=== PATIENT | female | born 1975 | race Caucasian/White ===

== ENCOUNTER 2019-10-15 09:07 | Emergency (ER) | payer MEDICAID ==
[2019-10-15] MEDS ORDERED: LIDOCAINE 2% VISCOUS SOLN 15 ML UDCUP PO ONE (09:26)
[2019-10-15] MEDS ORDERED: MAG HYDROX/AL HYDROX/SIMETH SUSP 30 ML UDCUP PO ONE (09:26)
[2019-10-15] MEDS ORDERED: METOCLOPRAMIDE HCL ORAL SOLN 10 MG/10 ML UDCUP PO ONE (09:26)
--- NOTE | 2019-10-15 09:29 | ER Document Report ---
ED Medical Screen (RME) - General Chief Complaint: Abdominal Pain Stated Complaint: ABDOMINAL PAIN Time Seen by Provider: 10/15/19 09:20 Primary Care Provider: GUERITA SHUKLA DO [Primary Care Provider] - Follow up as needed Mode of Arrival: Ambulatory Information source: Patient Notes: 44-year-old female presented to ED for difficulty swallowing pain when she swallows pain when she eats when she lays down she has severe pain. Patient states she has a history with IBS but states she has never had pain like this. She states that it feels like the food goes to the bottom of her esophagus and then just sits there. She states sometimes she can feel the cold liquid just sitting in the bottom of her esophagus. Patient is alert oriented respirations regular and unlabored speaking in full sentences. I have greeted and performed a rapid initial assessment of this patient. A comprehensive ED assessment and evaluation of the patient, analysis of test results and completion of medical decision making process will be conducted by an additional ED providers. TRAVEL OUTSIDE OF THE [place] IN LAST 30 DAYS: No - Related Data Allergies/Adverse Reactions: Sulfa (Sulfonamide Antibiotics) Allergy (Verified 11/18/13 14:25) Past Medical History - Past Medical History Cardiac Medical History: Denies: Hx Coronary Artery Disease, Hx Heart Attack, Hx Hypertension Pulmonary Medical History: Denies: Hx Asthma, Hx Bronchitis, Hx COPD, Hx Pneumonia Neurological Medical History: Reports: Hx Migraine. Denies: Hx Cerebrovascular Accident, Hx Seizures GI Medical History: Reports: Hx Irritable Bowel Musculoskeltal Medical History: Denies Hx Arthritis Psychiatric Medical History: Reports: Hx Depression Past Surgical History: Reports: Hx Oral Surgery, Hx Tonsillectomy, Hx Tubal Ligation. Denies: Hx Hysterectomy, Hx Pacemaker - Immunizations Hx Diphtheria, Pertussis, Tetanus Vaccination: No Physical Exam - Vital signs Vitals: Temp Pulse Resp BP Pulse Ox 97.9 F 96 16 142/83 H 99 10/15/19 09:14 10/15/19 09:14 10/15/19 09:14 10/15/19 09:14 10/15/19 09:14 Course - Vital Signs Vital signs: Temp Pulse Resp BP Pulse Ox 97.9 F 96 16 142/83 H 99 10/15/19 09:14 10/15/19 09:14 10/15/19 09:14 10/15/19 09:14 10/15/19 09:14 Doctor's Discharge - Discharge Referrals: GUERITA SHUKLA, [Primary Care Provider] - Follow up as needed
[2019-10-15 10:02] LABS: ABSOLUTE BASOPHILS # (AUTO) 0.1 10^3/uL (0.0-0.2); ABSOLUTE EOSINOPHILS # (AUTO) 1.5 10^3/uL (0.0-0.6); ABSOLUTE LYMPHOCYTES (AUTO) 3.1 10^3/uL (0.5-4.7); ABSOLUTE MONOCYTES (AUTO) 0.6 10^3/uL (0.1-1.4); ABSOLUTE NEUT (AUTO) 5.2 10^3/uL (1.7-8.2); BASOPHILS % (AUTO) 1.3 % (0-2); HEMATOCRIT 39.1 % (36.0-47.0); HEMOGLOBIN 12.5 g/dL (12.0-15.5); LYMPHOCYTES % (AUTO) 29.4 % (13-45); MEAN CORPUSCULAR HEMOGLOBIN 24.4 pg (27.0-33.4); MEAN CORPUSCULAR HGB CONC 32.1 g/dL (32.0-36.0); MEAN CORPUSCULAR VOLUME 76 fl (80-97); MONOCYTES % (AUTO) 5.5 % (3-13); PLATELET COUNT 446 10^3/uL (150-450); RED BLOOD COUNT 5.15 10^6/uL (3.72-5.28); RED CELL DISTRIBUTION WIDTH 20.3 % (11.5-14.0); SEGMENTED NEUTROPHILS % (AUTO) 49.8 % (42-78); TOTAL CELLS COUNTED % (AUTO) 100 %; WHITE BLOOD COUNT 10.4 10^3/uL (4.0-10.5)
[2019-10-15 10:06] LABS: APPEARANCE,URINE CLEAR; BILIRUBIN,URINE NEGATIVE (NEGATIVE); COLOR,URINE STRAW; GLUCOSE, URINE NEGATIVE (NEGATIVE); KETONES,URINE NEGATIVE (NEGATIVE); LEUKOCYTE ESTERASE,URINE NEGATIVE (NEGATIVE); NITRITE,URINE NEGATIVE (NEGATIVE); PROTEIN,URINE NEGATIVE (NEGATIVE); URINE SPECIFIC GRAVITY 1.004; UROBILINOGEN,URINE NEGATIVE mg/dL (<2.0)
[2019-10-15 10:41] LABS: ALBUMIN 5.3 g/dL (3.5-5.0); ALKALINE PHOSPHATASE 63 U/L (38-126); ANION GAP 13 (5-19); ASPARTATE AMINO TRANSFERASE 22 U/L (14-36); BILIRUBIN,TOTAL 0.4 mg/dL (0.2-1.3); BLOOD UREA NITROGEN 4 mg/dL (7-20); CALCIUM 10.1 mg/dL (8.4-10.2); CARBON DIOXIDE 25 mmol/L (22-30); CHLORIDE 101 mmol/L (98-107); GLUCOSE 77 mg/dL (75-110); POTASSIUM 3.8 mmol/L (3.6-5.0); TOTAL PROTEIN 8.8 g/dL (6.3-8.2)
--- NOTE | 2019-10-15 11:57 | RADIOLOGY REPORT (SQ) ---
EXAM DESCRIPTION: ACUTE ABDOMEN SERIES IMAGES COMPLETED DATE/TIME: 10/15/2019 10:12 am REASON FOR STUDY: nausea/vomiting COMPARISON: None. NUMBER OF VIEWS: Three views. TECHNIQUE: Frontal chest, supine abdomen and upright/decubitus abdomen radiographic images acquired. LIMITATIONS: None. FINDINGS: CHEST: Lungs clear of infiltrates. FREE AIR: None. No abnormal gas collections. BOWEL GAS PATTERN: Nonobstructive pattern. No dilated loops or air fluid levels. Moderate stool in t he colon. CALCIFICATIONS: No suspicious calcifications. HARDWARE: None in the abdomen. SOFT TISSUES: No gross mass or suggestion of organomegaly. BONES: No acute fracture. No worrisome bone lesions. OTHER: No other significant finding. IMPRESSION: No acute cardiopulmonary disease. Moderate stool in the colon which can be seen with co nstipation. Nonobstructive bowel gas pattern. TECHNICAL DOCUMENTATION: JOB ID: [id number] 2010 [employer]- All Rights Reserved Reading location - IP/workstation name: [email or web address]
--- NOTE | 2019-10-15 12:56 | ER Document Report ---
Entered by HOMER STARR SCRIBE 10/15/19 1018 Acting as scribe for:DORITA UMAÑA MD ED General - General Chief Complaint: Epigastric Pain Stated Complaint: ABDOMINAL PAIN Time Seen by Provider: 10/15/19 09:20 Primary Care Provider: GUERITA SHUKLA DO [NO LOCAL MD] - Follow up as needed Mode of Arrival: Ambulatory Information source: Patient Notes: This 44-year-old female patient presents to the emergency department today with complaints of "tummy issues" for the last several months. Patient states she has had IBS for 20 years and this is "nothing like that". Patient further describes her symptoms, stating that when she is eating it gets stuck and she indicates the area that it feels like it is getting stuck is at the top of her stomach. Patient states other times it feels like her "whole tummy is on fire". Patient states she has not been seen yet for these symptoms. Patient denies a history of a hiatal hernia. TRAVEL OUTSIDE OF THE [place] IN LAST 30 DAYS: No - Related Data Allergies/Adverse Reactions: Sulfa (Sulfonamide Antibiotics) Allergy (Verified 11/18/13 14:25) Home Medications: Nexium, vitamins Past Medical History - General Information source: Patient - Social History Smoking Status: Never Smoker Cigarette use (# per day): No Frequency of alcohol use: None Drug Abuse: None Family History: Reviewed & Not Pertinent Patient has homicidal ideation: No Neurological Medical History: Reports: Hx Migraine GI Medical History: Reports: Hx Irritable Bowel Psychiatric Medical History: Reports: Hx Depression Past Surgical History: Reports: Hx Oral Surgery, Hx Tonsillectomy, Hx Tubal Ligation - Immunizations Hx Diphtheria, Pertussis, Tetanus Vaccination: No Review of Systems - Review of Systems Constitutional: No symptoms reported EENT: No symptoms reported Cardiovascular: No symptoms reported Respiratory: No symptoms reported Gastrointestinal: See HPI, Abdominal pain, Nausea, Vomiting Genitourinary: No symptoms reported Female Genitourinary: No symptoms reported Musculoskeletal: No symptoms reported Skin: No symptoms reported Hematologic/Lymphatic: No symptoms reported Neurological/Psychological: No symptoms reported -: Yes All other systems reviewed and negative Physical Exam - Vital signs Vitals: Temp 97.9 F 10/15/19 09:08 - Notes Notes: Physical Exam: General: Alert, very thin appearing. HEENT: Normocephalic. Atraumatic. PERRL. Extraocular movements intact. Oropharynx clear. Neck: Supple. Non-tender. Respiratory: No respiratory distress. Clear and equal breath sounds bilaterally. Cardiovascular: Regular rate and rhythm. Abdominal: Normal Inspection. Non-tender. No distension. Normal Bowel Sounds. Back: No gross abnormalities. Extremities: Moves all four extremities. Upper extremities: Normal inspection. Normal ROM. Lower extremities: Normal inspection. No edema. Normal ROM. Neurological: Normal cognition. AAOx4. Normal speech. Psychological: Normal affect. Normal Mood. Skin: Warm. Dry. Normal color. Course - Re-evaluation Re-evalutation: 10/15/19 12:50 Patient resting comfortably no signs of distress. - Vital Signs Vital signs: Temp Pulse Resp BP Pulse Ox 97.9 F 96 16 142/83 H 99 10/15/19 09:14 10/15/19 09:14 10/15/19 09:14 10/15/19 09:14 10/15/19 09:14 - Laboratory Result Diagrams: 10/15/19 09:33 10/15/19 09:33 Laboratory results interpreted by me: 10/15/19 10/15/19 09:33 09:33 MCV 76 L MCH 24.4 L RDW 20.3 H Eos % (Auto) 14.0 H Absolute Eos (auto) 1.5 H BUN 4 L Total Protein 8.8 H Albumin 5.3 H 10/15/19 12:50 Labs within normal limits except there is a elevated troponin of 8.8 and albumin of 5.3. - Diagnostic Test Radiology reviewed: Image reviewed, Reports reviewed Radiology results interpreted by me: 10/15/19 12:51 Acute abdominal series shows no acute process. Moderate stool consistent with constipation. Discharge - Discharge Clinical Impression: Gastroesophageal reflux disease, Constipation Condition: Stable Disposition: HOME, SELF-CARE Instructions: Abdominal Pain ([facility]) Additional Instructions: Reflux Disease (GERD) Gastro-Esophageal Reflux Disease (GERD) is caused by stomach acid refluxing back up into the esophagus. The valve at the end of the esophagus may be weak. This is common in persons with a hiatal hernia. GERD symptoms can include indigestion, chest pain, heartburn, or food "sticking." Certain foods, alcohol, and aspirin can make GERD worse. Treatment depends on the severity. Usually, antacids or acid-suppressing medicines are used. When the esophagus is acutely inflamed, the physician will often prescribe membrane-protective drugs such as Carafate. Some patients benefit from medication such as Reglan that tightens the valve at the top of the stomach. Avoid those foods that bring on your symptoms. For many people, these foods are coffee, chocolate, onions, garlic, and carbonated drinks. Don't use alcohol, aspirin, caffeine, or tobacco. Don't eat late at night -- within 4 hours of bedtime. Don't over-eat. If necessary, elevate the head of your bed about 4 inches so that stomach acid will not roll up into your esophagus. Call the doctor if you develop severe chest pain, inability to swallow fluids, fever, or worsening symptoms. Constipation Constipation is a common problem. It is especially likely as you get older. Constipation is a common cause of abdominal pain, but sometimes causes no symptoms at all. Causes of constipation include certain medications, dehydration, diets, inactivity, and low-fiber intake. Rarely, it can be a symptom of underlying disease. The physician has evaluated you for this. Avoid constipation by eating a diet high in fiber, fruits, and vegetables. Drink plenty of liquids. Get regular exercise. If possible, avoid constipating medicines like narcotic pain medication. Some vitamin tablets can cause constipation. Stool softeners may be needed for difficult cases. An excellent stool softener is Konsyl which is available at [employer], and [employer] drug store. Just add a teaspoon to a glass of pineapple or orange juice daily or twice a day if needed. Laxatives are useful for occasional constipation. You should use them only when necessary. Too-frequent use can make your bowels dependent on them. Some over the counter laxatives available without prescription are: Milk of Magnesia, 1-2 tablespoons twice a day Dulcolax, 5 mg pill or 10 mg suppository. Citrate of Magnesia, 4-5 ounces a day for a day or two For acute constipation, Fleet's Enemas and Dulcolax suppositories are helpful. Chronic, termite renewal inspector use of laxatives or enemas is not a good idea. Your bowel may become dependant on them. You do not need to have a bowel movement every day. Many people do fine with a bowel movement every three or four days. You should call your doctor or return for re-evaluation if you pass blood in the stool, or if you develop fever or increasing abdominal pain. Prescriptions: Polyethylene Glycol 3350 [Miralax Powder 17 gm/Packet] 1 packet PO DAILY 10 Days #1 pkg Omeprazole 20 mg PO DAILY #30 capsule.dr Forms: Return to Work Referrals: GUERITA SHUKLA, [NO LOCAL MD] - Follow up as needed I personally performed the services described in the documentation, reviewed and edited the documentation which was dictated to the scribe in my presence, and it accurately records my words and actions.
[2019-10-15 14:09] VITALS: BP 131/71
== END 2019-10-15 14:07 | disposition home or self-care (01) ==
LOC: ER 09:07
DX: K21.9 Gastro-esophageal reflux disease without esophagitis (principal); K59.00 Constipation, unspecified; R10.13 Epigastric pain; R10.9 Unspecified abdominal pain; Z88.2 Allergy status to sulfonamides; Z79.899 Other long term (current) drug therapy
CPT/HCPCS: 99284; 36415; 83690; 85025; 80053; 81001; 74022; J3490 ×3

== ENCOUNTER 2020-03-28 19:00 | Emergency (ER) | payer SELFPAY ==
--- NOTE | 2020-03-28 22:25 | ER Document Report ---
ED General - General Stated Complaint: SHORTNESS OF BREATH Time Seen by Provider: 03/28/20 22:08 Mode of Arrival: Ambulatory Information source: Patient Notes: Is a 44-year-old female coming in today chief complaint of bad cough for the past 3 weeks. She states that it hurts when she turns to take a deep breath. No fevers or shaking chills. No myalgias. No vomiting or diarrhea. TRAVEL OUTSIDE OF THE [place] IN LAST 30 DAYS: No - Related Data Allergies/Adverse Reactions: Sulfa (Sulfonamide Antibiotics) Allergy (Verified 11/18/13 14:25) Past Medical History - Social History Smoking Status: Never Smoker Family History: Reviewed & Not Pertinent - Past Medical History Cardiac Medical History: Denies: Hx Coronary Artery Disease, Hx Heart Attack, Hx Hypertension Pulmonary Medical History: Denies: Hx Asthma, Hx Bronchitis, Hx COPD, Hx Pneumonia Neurological Medical History: Reports: Hx Migraine. Denies: Hx Cerebrovascular Accident, Hx Seizures GI Medical History: Reports: Hx Irritable Bowel Musculoskeletal Medical History: Denies Hx Arthritis Psychiatric Medical History: Reports: Hx Depression Past Surgical History: Reports: Hx Oral Surgery, Hx Tonsillectomy, Hx Tubal Ligation. Denies: Hx Hysterectomy, Hx Pacemaker - Immunizations Hx Diphtheria, Pertussis, Tetanus Vaccination: No Review of Systems - Review of Systems Notes: Constitutional: No fevers. No chills. EENT: No eye redness. No eye pain. No ear pain. No sore throat. Cardiovascular: No chest pain. No palpitations. Respiratory: Positive cough with painful respiration Gastrointestinal: No abdominal pain. No nausea, vomiting, or diarrhea. Genitourinary: Atraumatic. No lesions. No pain. No discharge. Musculoskeletal: Atraumatic. No swelling. No deformities. Skin: No rash or lesions. Lymphatic: No swollen lymph nodes. Physical Exam - Vital signs Vitals: Temp Pulse Resp BP Pulse Ox 99.1 F 88 20 182/99 H 99 03/28/20 19:33 03/28/20 19:33 03/28/20 19:33 03/28/20 19:33 03/28/20 19:33 - Notes Notes: General: Well-developed, well-nourished. In no acute distress. Non-toxic appearing. Cardiac: Well-perfused. Regular rate and rhythm. No murmurs, rubs, or gallops. Pulmonary: No respiratory distress. No cyanosis. Bilateral lung carballo are clear to auscultation. Abdominal: Non-distended. Non-rigid. Bowels sounds are present in all four quadrants. No guarding or rebound. HEENT: Head is atraumatic. Conjunctivae not reddened. No tearing. PERRL. EOMI. Orbits atraumatic. No periorbital swelling or erythema. Oropharynx is without erythema, swelling, or exudates. Neck: Supple. No adenopathy. No meningismus. Dermatologic: Warm with good turgor. No rash. Atraumatic. Chest: Atraumatic. No chest wall tenderness to palpation. Musculoskeletal: Moves all extremities well. No range of motion deficits. no muscular or joint tenderness. No paraspinal muscle tenderness. no midline spinal tenderness or step-off. Genitourinary: Examination deferred Neurologic: No gross neurologic deficits. Psychiatric: Normal mood. Course - Re-evaluation Re-evalutation: 03/28/20 22:22 Normal exam. We will start her on albuterol MDI and indomethacin. - Vital Signs Vital signs: Temp Pulse Resp BP Pulse Ox 99.1 F 88 20 182/99 H 99 03/28/20 19:33 03/28/20 19:33 03/28/20 19:33 03/28/20 19:33 03/28/20 19:33 Discharge - Discharge Clinical Impression: Elevated blood pressure reading, Viral syndrome, Person under investigation for COVID-19 Condition: Good Disposition: HOME, SELF-CARE Instructions: Viral Syndrome ([facility]), COVID-19 Guidance for Persons Under Investigation Additional Instructions: Follow up in [facility] Prescriptions: Indomethacin [Indocin 25 mg Capsule] 25 mg PO Q8HP PRN #20 capsule PRN Reason: Albuterol Sulfate [Proair HFA Inhalation Aerosol 8.5 gm MDI] 2 puff IH Q4H PRN #1 mdi PRN Reason: Forms: Return to Work
[2020-03-28 22:39] VITALS: BP 167/84
== END 2020-03-28 22:40 | disposition home or self-care (01) ==
LOC: ER 19:00
DX: B34.9 Viral infection, unspecified (principal); R03.0 Elevated blood-pressure reading, without diagnosis of hypertension; R05 Cough; R07.1 Chest pain on breathing; R06.02 Shortness of breath; Z88.2 Allergy status to sulfonamides; Z20.828 Contact with and (suspected) exposure to other viral communicable diseases
CPT/HCPCS: 99283; 87635; C9803

== ENCOUNTER 2020-04-11 15:08 | Emergency (ER) | payer SELFPAY ==
--- NOTE | 2020-04-11 16:58 | ER Document Report ---
ED Medical Screen (RME) - General Chief Complaint: Breathing Difficulty Stated Complaint: DIFFICULTY BREATHING Time Seen by Provider: 04/11/20 16:49 Mode of Arrival: Ambulatory Information source: Patient Notes: Patient is a 44-year-old female returns emergency room complaining of increasing shortness of breath and chest pain. Patient states she was seen here approximately 3 weeks ago placed on albuterol and sent home. She states there was no chest x-rays done and she has progressively gotten worse. Patient denies any history of smoking drinking or drugs. She states that it really hurts to take a deep breath. She denies any fevers. Patient is not a smoker and she is not on any kind of control denies any long trips. She also complains that the anterior lymph nodes are swelling slightly as well. And then injects that she has lost approximately 15 pounds in the past couple months without trying. 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 Physical examination: Patient is a very frail thin appearing 44-year-old female who is in no apparent distress on examination. Cardiac: Patient is slightly tachycardic at 107 bpm on monitor. No murmurs auscultated. Lungs: Bilateral breath sounds with breath sounds increased throughout there is rhonchi scattered throughout with a faint expiratory wheeze also noted. Rhonchi does not clear on cough. HEENT: Examination head and upper airway show nasal mucosa be mildly erythematous no edema is noted no nasal congestion is noted. Posterior pharynx shows you have been seen today in the Emergency Department for your concerns. At this time there is no obvious cause for your concerns. You may have received labs or imaging which you can receive copies of from medical records. If your symptoms do worsen or new symptoms occur you must return immediately for further care. Either way you must follow up with the primary care physician for further evaluation mucosa moisture with no erythema and airways patent. I have greeted and performed a rapid initial assessment of this patient. A comprehensive ED assessment and evaluation of the patient, analysis of test results and completion of the medical decision making process will be conducted by additional ED providers. Dictation of this chart was performed using voice recognition software; therefore, there may be some unintended grammatical errors. TRAVEL OUTSIDE OF THE [place] IN LAST 30 DAYS: No - Related Data Allergies/Adverse Reactions: Sulfa (Sulfonamide Antibiotics) Allergy (Verified 11/18/13 14:25) Past Medical History - Past Medical History Cardiac Medical History: Denies: Hx Coronary Artery Disease, Hx Heart Attack, Hx Hypertension Pulmonary Medical History: Denies: Hx Asthma, Hx Bronchitis, Hx COPD, Hx Pneumonia Neurological Medical History: Reports: Hx Migraine. Denies: Hx Cerebrovascular Accident, Hx Seizures GI Medical History: Reports: Hx Irritable Bowel Musculoskeltal Medical History: Denies Hx Arthritis Psychiatric Medical History: Reports: Hx Depression Past Surgical History: Reports: Hx Oral Surgery, Hx Tonsillectomy, Hx Tubal Ligation. Denies: Hx Hysterectomy, Hx Pacemaker - Immunizations Hx Diphtheria, Pertussis, Tetanus Vaccination: No Physical Exam - Vital signs Vitals: Temp Pulse Resp BP Pulse Ox 98.2 F 107 H 20 145/97 H 99 04/11/20 15:26 04/11/20 15:26 04/11/20 15:26 04/11/20 15:26 04/11/20 15:26 Course - Vital Signs Vital signs: Temp Pulse Resp BP Pulse Ox 98.2 F 107 H 20 145/97 H 99 04/11/20 15:26 04/11/20 15:26 04/11/20 15:26 04/11/20 15:26 04/11/20 15:26
[2020-04-11 17:41] LABS: ABSOLUTE BASOPHILS # (AUTO) 0.1 10^3/uL (0.0-0.2); ABSOLUTE EOSINOPHILS # (AUTO) 1.8 10^3/uL (0.0-0.6); ABSOLUTE LYMPHOCYTES (AUTO) 3.5 10^3/uL (0.5-4.7); ABSOLUTE MONOCYTES (AUTO) 0.8 10^3/uL (0.1-1.4); ABSOLUTE NEUT (AUTO) 5.2 10^3/uL (1.7-8.2); BASOPHILS % (AUTO) 1.2 % (0-2); EOSINOPHILS % (AUTO) 15.9 % (0-6); HEMATOCRIT 34.2 % (36.0-47.0); HEMOGLOBIN 10.6 g/dL (12.0-15.5); LYMPHOCYTES % (AUTO) 30.4 % (13-45); MEAN CORPUSCULAR HGB CONC 30.9 g/dL (32.0-36.0); MEAN CORPUSCULAR VOLUME 68 fl (80-97); MONOCYTES % (AUTO) 6.9 % (3-13); PLATELET COUNT 445 10^3/uL (150-450); RED BLOOD COUNT 5.04 10^6/uL (3.72-5.28); RED CELL DISTRIBUTION WIDTH 18.4 % (11.5-14.0); SEGMENTED NEUTROPHILS % (AUTO) 45.6 % (42-78); TOTAL CELLS COUNTED % (AUTO) 100 %; WHITE BLOOD COUNT 11.5 10^3/uL (4.0-10.5)
--- NOTE | 2020-04-11 17:42 | RADIOLOGY REPORT (SQ) ---
EXAM DESCRIPTION: CHEST SINGLE VIEW IMAGES COMPLETED DATE/TIME: 04/11/2020 4:20 pm REASON FOR STUDY: Short of breath for 2 weeks COMPARISON: None. EXAM PARAMETERS: NUMBER OF VIEWS: One view. TECHNIQUE: Single frontal radiographic view of the chest acquired. RADIATION DOSE: NA LIMITATIONS: None. FINDINGS: LUNGS AND PLEURA: No opacities, masses or pneumothorax. No pleural effusion. MEDIASTINUM AND HILAR STRUCTURES: No masses. Contour normal. HEART AND VASCULAR STRUCTURES: Heart normal in size. Normal vasculature. BONES: No acute findings. HARDWARE: None in the chest. OTHER: No other significant finding. IMPRESSION: NO ACUTE RADIOGRAPHIC FINDING IN THE CHEST. TECHNICAL DOCUMENTATION: JOB ID: [id number] 2010 [employer]- All Rights Reserved Reading location - IP/workstation name: [email or web address]
[2020-04-11 17:43] LABS: APPEARANCE,URINE CLEAR; BILIRUBIN,URINE NEGATIVE (NEGATIVE); COLOR,URINE STRAW; GLUCOSE, URINE NEGATIVE (NEGATIVE); KETONES,URINE NEGATIVE (NEGATIVE); LEUKOCYTE ESTERASE,URINE NEGATIVE (NEGATIVE); NITRITE,URINE NEGATIVE (NEGATIVE); PROTEIN,URINE NEGATIVE (NEGATIVE); URINE SPECIFIC GRAVITY 1.004; UROBILINOGEN,URINE NEGATIVE mg/dL (<2.0)
[2020-04-11 17:59] LABS: ALBUMIN 4.7 g/dL (3.5-5.0); ALKALINE PHOSPHATASE 71 U/L (38-126); ANION GAP 12 (5-19); ASPARTATE AMINO TRANSFERASE 23 U/L (14-36); BILIRUBIN,DIRECT 0.1 mg/dL (0.0-0.4); BILIRUBIN,TOTAL 0.2 mg/dL (0.2-1.3); BLOOD UREA NITROGEN 8 mg/dL (7-20); CALCIUM 9.6 mg/dL (8.4-10.2); CARBON DIOXIDE 23 mmol/L (22-30); CHLORIDE 104 mmol/L (98-107); GLUCOSE 82 mg/dL (75-110); POTASSIUM 4.3 mmol/L (3.6-5.0); TOTAL PROTEIN 7.7 g/dL (6.3-8.2)
[2020-04-11] MEDS ORDERED: IPRATROPIUM/ALBUTEROL 0.5-2.5 MG/3 ML AMPUL NEB ONE (21:11)
--- NOTE | 2020-04-11 21:18 | ER Document Report ---
ED General - General Chief Complaint: Shortness Of Breath Stated Complaint: DIFFICULTY BREATHING Time Seen by Provider: 04/11/20 16:49 Mode of Arrival: Ambulatory TRAVEL OUTSIDE OF THE [place] IN LAST 30 DAYS: No - HPI Notes: Patient is a 44-year-old female presents emergency department for evaluation of chest pain. She had a cough for about the last 3 weeks. She was diagnosed with pleuritic chest pain. It radiates into her entire chest and around her back. She states that sometimes it seems like the left is worse than the right, but she really cannot tell me right now. Her cough is productive. She was tested for Covid and was found to be negative. She denies any fevers or chills. No nausea or vomiting. No anosmia. Normal sense of taste. Normal bowel movements. She currently puts her pain an 8 out of 10. She states that her significantly to cough, laugh, breathe. She has no history of PE or DVT, no family history of DVT or PE. No recent travel or prolonged immobilization. She is not on oral contraceptives, no history of smoking, no recent surgeries. Patient also notes unintentional weight loss over the last several months. She does state, however, that she has significant acid reflux and IBS. She tries to keep her weight up with protein shakes. - Related Data Allergies/Adverse Reactions: Sulfa (Sulfonamide Antibiotics) Allergy (Verified 11/18/13 14:25) Home Medications: Nexium, vitamins, melatonin Past Medical History - General Information source: Patient - Social History Smoking Status: Never Smoker Family History: Reviewed & Not Pertinent Patient has homicidal ideation: No - Past Medical History Cardiac Medical History: Denies: Hx Coronary Artery Disease, Hx Heart Attack, Hx Hypertension Pulmonary Medical History: Denies: Hx Asthma, Hx Bronchitis, Hx COPD, Hx Pneumonia Neurological Medical History: Reports: Hx Migraine. Denies: Hx Cerebrovascular Accident, Hx Seizures GI Medical History: Reports: Hx Irritable Bowel Musculoskeletal Medical History: Denies Hx Arthritis Psychiatric Medical History: Reports: Hx Depression Past Surgical History: Reports: Hx Oral Surgery, Hx Tonsillectomy, Hx Tubal Ligation. Denies: Hx Hysterectomy, Hx Pacemaker - Immunizations Hx Diphtheria, Pertussis, Tetanus Vaccination: No Review of Systems - Review of Systems Constitutional: See HPI EENT: No symptoms reported Cardiovascular: See HPI Respiratory: See HPI Gastrointestinal: No symptoms reported Genitourinary: No symptoms reported Musculoskeletal: See HPI Skin: No symptoms reported Neurological/Psychological: No symptoms reported Physical Exam - Vital signs Vitals: Temp Pulse Resp BP Pulse Ox 98.2 F 107 H 20 145/97 H 99 04/11/20 15:26 04/11/20 15:26 04/11/20 15:26 04/11/20 15:26 04/11/20 15:26 - Notes Notes: This is a frail-appearing 42-year-old female, who appears her stated age, no acute distress. Vital signs reviewed, please refer to chart. Head is normocephalic, atraumatic. Pupils equal round, reactive to light. Neck is supple without meningismus. Heart is regular rate and rhythm. Lungs reveal a prolonged expiratory phase with occasional wheezes. Abdomen is soft, nontender, normoactive bowel sounds throughout. Extremities without cyanosis, clubbing. Posterior calves are nontender. Peripheral pulses are equal. Skin is warm and dry. Patient is awake, alert, neurological exam is nonfocal. Course - Re-evaluation Re-evalutation: 04/11/20 21:19 Patient presents emergency department for evaluation. On arrival she was tachycardic and complaining of pleuritic type chest pain. She was Covid tested and found to be negative in the past. She was showing wheezing. Her D-dimer was negative, but only by a small amount. Given her tachycardia and persistent symptoms, I do believe a CT angiogram is warranted at this time. Patient will be given a DuoNeb. She is currently stable, we will continue to monitor. 04/11/20 23:[address] is positive for nodules and scar tissue, but no sign of pulmonary embolus, infiltrate, or other acute abnormalities noted. Patient is notified of the finding of the scar tissue as well as the nodule, and the need for follow- up. She voiced understanding. Otherwise, I do suspect there might be a chemical pneumonitis component to this patient's symptoms. She states that she had lived in an apartment around the time that this started where they were spraying chemicals, treating for mold and other issues, and she continues to wheeze despite no history of asthma. I will treat her with steroids. She is given her first dose of Solu-Medrol here. I will send her home with a Medrol Dosepak. She is to follow-up with primary care. She is to return to the ED with worsening or new concerning symptoms of any sort. - Vital Signs Vital signs: Temp Pulse Resp BP Pulse Ox 98.5 F 87 20 136/83 H 98 04/11/20 21:56 04/11/20 21:56 04/11/20 21:56 04/11/20 21:56 04/11/20 21:56 - Laboratory Result Diagrams: 04/11/20 17:18 04/11/20 17:18 Laboratory results interpreted by me: 04/11/20 17:18 WBC 11.5 H Hgb 10.6 L Hct 34.2 L MCV 68 L MCH 21.0 L MCHC 30.9 L RDW 18.4 H Eos % (Auto) 15.9 H Absolute Eos (auto) 1.8 H - Diagnostic Test Radiology reviewed: Reports reviewed Radiology results interpreted by me: 04/11/20 23:46 Chest X-Ray 04/11/20 16:59 IMPRESSION: NO ACUTE RADIOGRAPHIC FINDING IN THE CHEST. Chest/Abdomen CTA 04/11/20 21:11 IMPRESSION: Pulmonary nodule as described. No evidence of pulmonary embolus. Discharge - Discharge Clinical Impression: Pneumonitis due to fumes and vapors, Pulmonary nodule Chest pain Qualifiers: Chest pain type: chest pain on breathing Qualified Code(s): R07.1 - Chest pain on breathing Condition: Stable Disposition: HOME, SELF-CARE Additional Instructions: A nodule was seen on your CT. You should have a repeat CT scan in 3 to 6 months. Please follow-up with primary care. Otherwise, no pneumonia is for blood clots were seen on your scan. Follow-up with primary care next week. Please return to the emergency department with worsening or new concerning symptoms of any sort. Prescriptions: Methylprednisolone [Medrol Dosepack (4 mg/Tab) 21 Tab/Dosepak] 4 mg PO ASDIR PRN #21 tab.ds.pk PRN Reason:
--- NOTE | 2020-04-11 22:38 | RADIOLOGY REPORT (SQ) ---
EXAM DESCRIPTION: CT CHEST ANGIOGRAPHY WITHOUT THEN WITH IV CONTRAST COMPLETED DATE/TME: 04/11/2020 22:09 CLINICAL HISTORY: 44 years, Female, Pleuritic chest pain, cough, tachycardia PROCEDURE: CTA CHEST CLINICAL HISTORY: 44 years Female Pleuritic chest pain, cough, tachycardia COMPARISON: None. TECHNIQUE: Contiguous axial images were obtained through the chest during the infusion of IV contrast. Reformatted images obtained. MIP reformatted images obtained. This exam was performed according to our department optimization program which includes automated exposure control, adjustment of the mA and/or kv according to patient size and/or use of iterative reconstruction technique. FINDINGS: Low-attenuation lesion of the right kidney may be a cyst. There are regions of atelectasis and scar in both lungs. A few soft tissue nodules in the right lung measure up to 7 x 5 mm. The lungs are otherwise clear. No pneumothorax is seen. Heart size is normal. No pleural effusions. No lymphadenopathy. No PE is seen. No evidence of aortic aneurysm. No other significant abnormality. IMPRESSION: Pulmonary nodule as described. No evidence of pulmonary embolus.
[2020-04-11] MEDS ORDERED: METHYLPREDNISOLONE INJ 125 MG/2 ML SDV IV ONE (23:36)
[2020-04-12 00:19] VITALS: BP 145/62
== END 2020-04-12 00:19 | disposition home or self-care (01) ==
LOC: ER 15:08
DX: T59.91XA Toxic effect of unspecified gases, fumes and vapors, accidental (unintentional), initial encounter (principal); J68.0 Bronchitis and pneumonitis due to chemicals, gases, fumes and vapors; R07.81 Pleurodynia; R07.1 Chest pain on breathing; R06.2 Wheezing; R00.0 Tachycardia, unspecified; R05 Cough; R63.4 Abnormal weight loss; R91.8 Other nonspecific abnormal finding of lung field; K21.9 Gastro-esophageal reflux disease without esophagitis; K58.9 Irritable bowel syndrome, unspecified; Z79.899 Other long term (current) drug therapy; Z88.2 Allergy status to sulfonamides
CPT/HCPCS: 94640; 99285; 96374; 36415; 87086; 85025; 81025; 80053; 81001; 85379; 71045; 71275; J2930

== ENCOUNTER 2020-05-11 07:49 | Emergency (ER) | payer SELFPAY ==
[2020-05-11] MEDS ORDERED: PREDNISONE 20 MG TABLET PO ONE (09:05)
[2020-05-11] MEDS ORDERED: ALBUTEROL SULFATE 0.083% NEB 2.5 MG/3 ML AMPUL NEB ONE (09:05)
--- NOTE | 2020-05-11 09:21 | ER Document Report ---
ED Respiratory Problem - General Chief Complaint: Shortness Of Breath Stated Complaint: BREATHING PROBLEMS Time Seen by Provider: 05/11/20 08:56 Notes: CHIEF COMPLAINT: Shortness of breath HPI: 44-year-old female presenting to the emergency department for evaluation of shortness of breath. This is been continuing since early March when she states she was seen for evaluation for shortness of breath twice. States that she had a negative Covid test. States that she had a negative CT of the chest. States that she felt better on albuterol and prednisone but is out of those. Has not followed up with a primary care provider for reevaluation of symptoms. Has not had a fever. Feels like she cannot take a deep breath then. ROS: See HPI - all other systems were reviewed and are otherwise negative Constitutional: no fever Eyes: no drainage, no blurred vision ENT: no runny nose, no sore throat Cardiovascular: no chest pain Resp: + SOB, + cough GI: no vomiting, no diarrhea, no abdominal pain : no dysuria Integumentary: no rash Allergy: no hives Musculoskeletal: no extremity pain or swelling Neurological: no numbness/tingling, no weakness MEDICATIONS: I agree with the patient medications as charted by the RN. ALLERGIES: I agree with the allergies as charted by the RN. PAST MEDICAL HISTORY/PAST SURGICAL HISTORY: Reviewed and agree as charted by RN. SOCIAL HISTORY: Reviewed and agree as charted by RN. FAMILY HISTORY: No significant familial comorbid conditions directly related to patient complaint EXAM: Reviewed vital signs as charted by RN. CONSTITUTIONAL: Alert and oriented and responds appropriately to questions. Well-appearing; well-nourished HEAD: Normocephalic; atraumatic EYES: PERRL; Conjunctivae clear, sclerae non-icteric ENT: normal nose; no rhinorrhea; moist mucous membranes; pharynx without lesions noted, no uvula edema or deviation, no tonsillar hypertrophy, phonation normal NECK: Supple without meningismus; non-tender; no cervical lymphadenopathy, no masses CARD: RRR; no murmurs, no clicks, no rubs, no gallops; symmetric distal pulses RESP: Normal chest excursion. Mild tachypnea; breath sounds noted to have expiratory wheezing in all lung carballo, no rhonchi, no rales, pulse oximetry 98% on room air not hypoxic ABD/GI: Normal bowel sounds; non-distended; soft, non-tender, no rebound, no guarding; no palpable organomegaly or masses. BACK: The back appears normal and is non-tender to palpation, there is no CVA tenderness EXT: Normal ROM in all joints; non-tender to palpation; no cyanosis, no effusions, no edema SKIN: Normal color for age and race; warm; dry; good turgor; no acute lesions noted NEURO: Moves all extremities equally; Motor and sensory function intact PSYCH: The patient's mood and manner are appropriate. Grooming and personal hygiene are appropriate. MDM: 44-year-old female with expiratory wheezing, strong family history of asthma but she has never been diagnosed with asthma. She states she did better on albuterol and prednisone. Was never placed on antibiotics. On review of her records she had a CT of the chest on her last visit a month ago which showed a nodule in the lung but no PE. This is a continuation of symptoms. Unlikely that this is a pulmonary embolus at this time. Will give breathing treatments and steroids likely reactive airway disease. Will consider antibiotics given length of time of symptoms The patient was evaluated during the global COVID-19 pandemic and that diagnosis was suspected/considered upon their initial presentation. Their evaluation, treatment and testing was consistent with current guidelines for patients who present with complaints or symptoms that may be related to COVID-19 TRAVEL OUTSIDE OF THE [place] IN LAST 30 DAYS: No - Related Data Allergies/Adverse Reactions: Sulfa (Sulfonamide Antibiotics) Allergy (Verified 11/18/13 14:25) Home Medications: nexium, probiotisc, zyrtec Past Medical History - Social History Smoking Status: Never Smoker Family History: Reviewed & Not Pertinent - Past Medical History Cardiac Medical History: Denies: Hx Coronary Artery Disease, Hx Heart Attack, Hx Hypertension Pulmonary Medical History: Denies: Hx Asthma, Hx Bronchitis, Hx COPD, Hx Pneumonia Neurological Medical History: Reports: Hx Migraine. Denies: Hx Cerebrovascular Accident, Hx Seizures GI Medical History: Reports: Hx Gastroesophageal Reflux Disease, Hx Irritable Bowel Musculoskeletal Medical History: Denies Hx Arthritis Psychiatric Medical History: Reports: Hx Depression Past Surgical History: Reports: Hx Oral Surgery, Hx Tonsillectomy, Hx Tubal Ligation. Denies: Hx Hysterectomy, Hx Pacemaker - Immunizations Hx Diphtheria, Pertussis, Tetanus Vaccination: No Physical Exam - Vital signs Vitals: Temp Pulse Resp BP Pulse Ox 98.9 F 108 H 22 H 150/87 H 98 05/11/20 07:51 05/11/20 07:51 05/11/20 07:51 05/11/20 07:51 05/11/20 07:51 Course - Re-evaluation Re-evalutation: 05/11/20 10:05 Lung sounds are clear to auscultation patient feels much better. We will treat for bronchitis with bronchospasm. Z-Todd, prednisone, albuterol, follow-up pulmonology - Vital Signs Vital signs: Temp Pulse Resp BP Pulse Ox 98.9 F 108 H 22 H 150/87 H 98 05/11/20 07:51 05/11/20 07:51 05/11/20 07:51 05/11/20 07:51 05/11/20 07:51 - Laboratory Results Critical Laboratory Results Reviewed: No Critical Results - Radiology Results Critical Radiology Results Reviewed: No Critical Results Discharge - Discharge Clinical Impression: Bronchitis, acute, with bronchospasm Condition: Stable Disposition: HOME, SELF-CARE Additional Instructions: 1. take the medications as prescribed 2. if you were prescribed an Albuterol inhaler, use it as instructed, 2 puffs every 4 hours as needed for cough/wheezing 3. call your primary care provider as soon as possible to schedule recheck appt. in the office. 4. return to the ED for any worsening condition, shortness of breath or continued fever that does not resolve with Motrin/Tylenol Prescriptions: Prednisone [Deltasone 20 mg Tablet] 2 tab PO DAILY 5 Days #10 tablet Albuterol Sulfate [Proair HFA Inhalation Aerosol 8.5 gm MDI] 2 puff IH Q4H PRN #1 mdi PRN Reason: Azithromycin [Zithromax 250 mg Tablet] 250 mg PO ASDIR PRN #6 tablet PRN Reason: Forms: Return to Work Referrals: MALI MORALES MD [ACTIVE PROVISIONAL STAFF] - Follow up as needed
--- NOTE | 2020-05-11 10:13 | RADIOLOGY REPORT (SQ) ---
EXAM DESCRIPTION: CHEST SINGLE VIEW IMAGES COMPLETED DATE/TIME: 05/11/2020 9:58 am REASON FOR STUDY: sob COMPARISON: 04/11/2020 EXAM PARAMETERS: NUMBER OF VIEWS: One view. TECHNIQUE: Single frontal radiographic view of the chest acquired. RADIATION DOSE: NA LIMITATIONS: None. FINDINGS: LUNGS AND PLEURA: No opacities, masses or pneumothorax. No pleural effusion. MEDIASTINUM AND HILAR STRUCTURES: No masses. Contour normal. HEART AND VASCULAR STRUCTURES: Heart normal in size. Normal vasculature. BONES: No acute findings. HARDWARE: None in the chest. OTHER: No other significant finding. IMPRESSION: NO ACUTE RADIOGRAPHIC FINDING IN THE CHEST. TECHNICAL DOCUMENTATION: JOB ID: [id number] 2010 [employer]- All Rights Reserved Reading location - IP/workstation name: [email or web address]
[2020-05-11 10:20] VITALS: BP 138/89
== END 2020-05-11 10:21 | disposition home or self-care (01) ==
LOC: ER 07:49
DX: J20.9 Acute bronchitis, unspecified (principal); R06.02 Shortness of breath; R05 Cough; Z88.2 Allergy status to sulfonamides; Z20.828 Contact with and (suspected) exposure to other viral communicable diseases; Z79.899 Other long term (current) drug therapy
CPT/HCPCS: 99283; 71045; J7512; J7613

== ENCOUNTER 2020-05-25 07:07 | Emergency (ER) | payer SELFPAY ==
--- NOTE | 2020-05-25 11:41 | RADIOLOGY REPORT (SQ) ---
EXAM DESCRIPTION: CHEST SINGLE VIEW IMAGES COMPLETED DATE/TIME: 05/25/2020 10:18 am REASON FOR STUDY: diff breathing COMPARISON: 05/11/2020 EXAM PARAMETERS: NUMBER OF VIEWS: One view. TECHNIQUE: Single frontal radiographic view of the chest acquired. RADIATION DOSE: NA LIMITATIONS: None. FINDINGS: LUNGS AND PLEURA: No opacities, masses or pneumothorax. No pleural effusion. MEDIASTINUM AND HILAR STRUCTURES: No masses. Contour normal. HEART AND VASCULAR STRUCTURES: Heart normal in size. Normal vasculature. BONES: No acute findings. HARDWARE: None in the chest. OTHER: No other significant finding. IMPRESSION: NO ACUTE RADIOGRAPHIC FINDING IN THE CHEST. TECHNICAL DOCUMENTATION: JOB ID: [id number] 2010 [employer]- All Rights Reserved Reading location - IP/workstation name: [email or web address]
[2020-05-25] MEDS ORDERED: ALBUTEROL SULFATE HFA (90 MCG/PUFF) 8 GM MDI (1 MDI/ER DISP) IH PRN (11:45)
[2020-05-25] MEDS ORDERED: PREDNISONE 20 MG TABLET PO ONE (11:45)
[2020-05-25 12:09] VITALS: BP 139/89
--- NOTE | 2020-05-25 18:00 | ER Document Report ---
Entered by KARINA FIERRO SCRIBE 05/25/20 1138 Acting as scribe for:BOB CLAUDIO IV, MD ED General - General Chief Complaint: Breathing Difficulty Stated Complaint: BREATHING DIFFICULTY Primary Care Provider: LITTLE GERARDO [Primary Care Provider] - Follow up as needed BEATRICE REHMAN MD [HONORARY] - Follow up as needed Mode of Arrival: Ambulatory Information source: Patient Notes: This 44 year old female patient presents to the ED today with complaints of shortness of breath and wheezing for the last x2 days. Patient reports associated pleuritic chest pain and states that her acid reflux exacerbates her breathing. 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 She states that the last time she was here, she was prescribed steroids and an albuterol inhaler that helped her for about x10-11 days. Denies fever or chills. She notes that she has never been diagnosed with asthma. TRAVEL OUTSIDE OF THE [place] IN LAST 30 DAYS: No - Related Data Allergies/Adverse Reactions: Sulfa (Sulfonamide Antibiotics) Allergy (Verified 05/25/20 09:20) Home Medications: albuterol inhaler Past Medical History - General Information source: Patient, [facility] Records - Social History Smoking Status: Never Smoker Cigarette use (# per day): No Chew tobacco use (# tins/day): No Smoking Education Provided: No Frequency of alcohol use: None Drug Abuse: None Family History: Reviewed & Not Pertinent Neurological Medical History: Reports: Hx Migraine GI Medical History: Reports: Hx Gastroesophageal Reflux Disease, Hx Irritable Bowel Psychiatric Medical History: Reports: Hx Depression Past Surgical History: Reports: Hx Oral Surgery, Hx Tonsillectomy, Hx Tubal Lig ation - Immunizations Hx Diphtheria, Pertussis, Tetanus Vaccination: No Review of Systems - Review of Systems Constitutional: See HPI. denies: Chills, Fever EENT: No symptoms reported Cardiovascular: No symptoms reported Respiratory: See HPI, Short of breath, Wheezing Gastrointestinal: See HPI, Other - Heartburn Genitourinary: No symptoms reported Female Genitourinary: No symptoms reported Musculoskeletal: No symptoms reported Skin: No symptoms reported Hematologic/Lymphatic: No symptoms reported Neurological/Psychological: No symptoms reported -: Yes All other systems reviewed and negative Physical Exam - Vital signs Vitals: Temp Pulse Resp BP Pulse Ox 98.3 F 114 H 16 146/81 H 99 05/25/20 07:26 05/25/20 07:26 05/25/20 07:05/25/20 07:05/25/20 07:26 - General General appearance: Appears well, Alert In distress: None - HEENT Head: Normocephalic, Atraumatic Eyes: Normal Extraocular movements intact: Yes Pupils: PERRL Neck: Normal, Supple - Respiratory Respiratory status: No respiratory distress Chest status: Nontender Breath sounds: Normal Chest palpation: Normal - Cardiovascular Rhythm: Regular Heart sounds: Normal auscultation Murmur: No Friction rub: No Gallop: None auscultated - Abdominal Inspection: Normal Distension: No distension Bowel sounds: Normal Tenderness: Nontender - Abdomen soft Organomegaly: No organomegaly - Back Back: Normal, Nontender - Extremities General upper extremity: Normal inspection General lower extremity: Normal inspection. No: Edema - Neurological Neuro grossly intact: Yes Orientation: AAOx4 Valentín Coma Scale Eye Opening: Spontaneous [place] Coma Scale Verbal: Oriented Valentín Coma Scale Motor: Obeys Commands Valentín Coma Scale Total: 15 - Psychological Associated symptoms: Normal affect, Normal mood - Skin Skin Temperature: Warm Skin Moisture: Dry Skin Color: Normal Course - Re-evaluation Re-evalutation: 05/25/20 11:47 Results of ED MSE discussed with patient. All questions were answered prior to discharge. Emergency signs and symptoms, reasons to return to the emergency department discussed with patient. - Vital Signs Vital signs: Temp Pulse Resp BP Pulse Ox 98.3 F 114 H 16 146/81 H 99 05/25/20 07:26 05/25/20 07:26 05/25/20 07:26 05/25/20 07:05/25/20 07:26 - Laboratory Results Critical Laboratory Results Reviewed: No Critical Results Attending or Supervising Physician who Reviewed Labs: BOB CLAUDIO IV - Radiology Results Critical Radiology Results Reviewed: No Critical Results Attending or Supervising Physician who Reviewed Radiology: BOB CLAUDIO IV Discharge - Discharge Clinical Impression: Reactive airway disease Qualifiers: Asthma severity: unspecified severity Asthma persistence: unspecified Asthma complication type: uncomplicated Qualified Code(s): J45.909 - Unspecified asthma, uncomplicated GERD (gastroesophageal reflux disease) Qualifiers: Esophagitis presence: esophagitis presence not specified Qualified Code(s): K21.9 - Gastro-esophageal reflux disease without esophagitis Condition: Stable Disposition: HOME, SELF-CARE Additional Instructions: Use Zegerid as discussed daily to prevent heartburn. You can take four 20 mg Pepcid tablets as needed for severe "middle of the night" heartburn. Return to the Emergency Department without delay if any worse. HOME CARE INSTRUCTIONS & INFORMATION: Thank you for choosing us for your medical needs. We hope you're satisfied with the care you received. After you leave, you must properly care for your problem and, at the same time, observe its progress. Any condition can change. Some illnesses can change rapidly over hours or days. If your condition worsens, return to the Emergency Department or see your physician promptly. ABOUT YOUR X-RAYS AND EKG'S: If you had an EKG or X-rays taken, they have been read by the Emergency Physician. The X-rays and EKG's will also be read by a Radiologist or Comptroller within 24 hours. If discrepancies are noted, you will be notified by telephone. Please be certain the ED has a correct telephone number & address where you can be reached. Also, realize that some fractures or abnormalities do not show up on initial X-rays. If your symptoms continue, see your physician. ABOUT YOUR LABORATORY TEST: If you had laboratory tests, the results have been reviewed by the Emergency Physician. Some test results (for example cultures) may not be available for several days. You will be contacted if any test result shows you need additional treatment. Please be certain the ED has a correct telephone number and address where you can be reached. ABOUT YOUR MEDICATIONS: You will receive instructions on how to take your medicine on the prescription label you receive. Additional information may be provided by the Pharmacy. If you have questions afterwards, call the ED for clarification or further instructions. Some prescribed medications may cause drowsiness. Do not perform tasks such as driving a car or operating machinery without consulting your Pharmacist. If you feel you need a refill of pain medication, your condition will need re-evaluation. Please do not call for a refill of any medication. ABOUT YOUR SIGNATURE: Signature of this document acknowledges to followin. Understanding that you received emergency treatment and that you may be released before al medical problems are known or treated. Please be certain the ED has a correct phone number & address where you can be reached. 2. Acknowledgement that you will arrange for follow-up care as recommended. 3. Authorization for the Emergency Physician to provide information to your follow-up Physician in order to maximize your care. AT ANY TIME, IF YOUR SYMPTOMS CHANGE SIGNIFICANTLY OR WORSEN OR YOU DEVELOP NEW SYMPTOMS, RETURN TO THE EMERGENCY DEPARTMENT IMMEDIATELY FOR RE-EVALUATION. OUR GOAL IS TO PROVIDE EXCELLENT MEDICAL CARE! WE HOPE THAT WE HAVE MET YOUR EXPECTATIONS DURING YOUR EMERGENCY DEPARTMENT V ISIT AND THAT YOU FEEL YOU HAVE RECEIVED EXCELLENT CARE! Prescriptions: Prednisone [Deltasone 20 mg Tablet] 2 tab PO DAILY 4 Days #8 tablet Albuterol Sulfate [Proair HFA Inhalation Aerosol 8.5 gm MDI] 2 puff IH Q4H PRN #1 mdi PRN Reason: Forms: Return to Work Referrals: LITTLE GERARDO [Primary Care Provider] - Follow up as needed BEATRICE REHMAN MD [HONORARY] - Follow up as needed I personally performed the services described in the documentation, reviewed and edited the documentation which was dictated to the scribe in my presence, and it accurately records my words and actions.
== END 2020-05-25 12:16 | disposition home or self-care (01) ==
LOC: ER 07:07
DX: J45.909 Unspecified asthma, uncomplicated (principal); K21.9 Gastro-esophageal reflux disease without esophagitis; R07.81 Pleurodynia; Z88.2 Allergy status to sulfonamides
CPT/HCPCS: 99283; 71045; J7512; J3490

== ENCOUNTER 2020-06-06 04:02 | Emergency (ER) | payer SELFPAY ==
[2020-06-06] MEDS ORDERED: IPRATROPIUM/ALBUTEROL 0.5-2.5 MG/3 ML AMPUL NEB ONE ×2 (04:13→04:14)
--- NOTE | 2020-06-06 05:29 | ER Document Report ---
ED General - General Chief Complaint: Shortness Of Breath Stated Complaint: SHORTNESS OF BREATH Time Seen by Provider: 06/06/20 05:29 TRAVEL OUTSIDE OF THE [place] IN LAST 30 DAYS: No - HPI Context: Chief complaint: Dyspnea [This is a 44-year-old female non-smoker who has presented to the emergency department several times for difficulty breathing. Patient states that she does not have a prior diagnosis of asthma but has asthma-like symptoms with changes in weather. Patient currently does not have a regular doctor but is scheduled to be seen at [facility] tomorrow to establish care. Patient states her most recent episode of difficulty breathing started a couple of days ago and has just gotten progressively worse. ] History obtained from [patient] Symptoms began:[2 days ago] Onset: [Gradual] Timing: [Gradual] Quality: [Sensation of chest tightness and dyspnea] Intensity: [Severe per patient] Location: [Chest and lungs] Radiation: [Denies] [The pain does not migrate to a new location.] Aggravating factors: Changes in weather, exertion Relieving factors: Nebulizer treatments and steroids Positive SOB [Denies] nausea [Denies] vomiting [Denies] sweats [Denies] fever [Denies] cough [Denies] calf or leg swelling or pain - Related Data Allergies/Adverse Reactions: Sulfa (Sulfonamide Antibiotics) Allergy (Verified 05/25/20 09:20) Past Medical History - General Information source: Patient - Social History Smoking Status: Never Smoker Family History: Reviewed & Not Pertinent - Past Medical History Cardiac Medical History: Denies: Hx Coronary Artery Disease, Hx Heart Attack, Hx Hypertension Pulmonary Medical History: Denies: Hx Asthma, Hx Bronchitis, Hx COPD, Hx Pneumonia Neurological Medical History: Reports: Hx Migraine. Denies: Hx Cerebrovascular Accident, Hx Seizures GI Medical History: Reports: Hx Gastroesophageal Reflux Disease, Hx Irritable Bowel Musculoskeletal Medical History: Denies Hx Arthritis Psychiatric Medical History: Reports: Hx Depression Past Surgical History: Reports: Hx Oral Surgery, Hx Tonsillectomy, Hx Tubal Ligation. Denies: Hx Hysterectomy, Hx Pacemaker - Immunizations Hx Diphtheria, Pertussis, Tetanus Vaccination: No Review of Systems - Review of Systems Notes: Review of systems as below unless otherwise stated in HPI. CONSTITUTIONAL [No] fever, [No] chills. EYES [No] eye pain. ENT [No] URI symptoms, [No] sore throat, [No] ear pain. CARDIOVASCULAR [No] chest pain, [No] palpitations, [No] edema. RESPIRATORY Positive cough, positive SOB, positive wheezing. GASTROINTESTINAL [No] abdominal pain, [No] nausea, [No] Diarrhea, [No] Vomiting, [No] constipation, [No] melena, [No] rectal bleeding. GENITOURINARY [No] dysuria, [No] urinary frequency, [No] hematuria, [No] urinary urgency, [No] vaginal discharge, [No] vaginal bleeding. MUSCULOSKELETAL [No] Back pain. SKIN [No] Rash. NEUROLOGIC [No] Headache, [No] recent seizures, [No] paralysis,[No] parathesias. ENDOCRINE [No] polyuria. HEMO/LYMPATIC [No] easy brusing PSYCHIATRIC [No] depression. Physical Exam - Vital signs Vitals: Temp Pulse Resp BP Pulse Ox 98.2 F 107 H 18 133/92 H 98 06/06/20 04:10 06/06/20 04:10 06/06/20 04:10 06/06/20 04:10 06/06/20 04:10 - Notes Notes: CONSTITUTIONAL [Vital signs reviewed, Patient appears to have increased work of breathing but does not appear to be in extremis, Alert and oriented X 3, Normal stature.] HEAD [Atraumatic, Normocephalic.] EYES [Eyes are normal to inspection, No discharge from eyes, Extraocular muscles intact, Sclera are normal, Conjunctiva are normal.] ENT [External ears normal to inspection, Nose examination normal, Mouth normal to inspection.] NECK [Normal ROM, No jugular venous distention, No meningeal signs, ] RESPIRATORY CHEST [Chest is nontender, Breath sounds diminished, some audible wheezes present, positive tachypnea and accessory muscle use.] CARDIOVASCULAR Tachycardia no murmurs, Normal S1 S2, No rub, No gallop.] ABDOMEN [Abdomen is nontender, No pulsatile masses, No other masses, Bowel sounds normal, No distension, No peritoneal signs, No hernias.] BACK [There is no CVA Tenderness, There is no tenderness to palpation, Normal inspection.] UPPER EXTREMITY [Inspection normal, No cyanosis, No clubbing, No edema, LOWER EXTREMITY [Inspection normal, No cyanosis, No clubbing, No edema, No calf tenderness, NEURO [No focal motor deficits, No focal sensory deficits, Speech normal.] SKIN [Skin is warm, Skin is dry, Skin is normal color.] PSYCHIATRIC [Normal affect. ] Course - Re-evaluation Re-evalutation: 06/06/20 05:49 Differential diagnosis: Reactive airway disease, autoimmune disease, viral syndrome, pulmonary fibrosis, sarcoidosis MDM: Patient's symptoms do respond to treatment with inhaled bronchodilators and steroid therapy. While she is had to have several rounds of steroids recently, until she is able to get in and establish care at [facility] tomorrow, I believe that the benefits of repeating her steroid therapy outweigh the risks. I am uncertain about the etiology of her respiratory symptoms, a new diagnosis of asthma given the patient's age seems unlikely. Plan: Inhaled nebulizer therapy here in the ED, 1 dose of IV steroids, fluid bolus, albuterol MDI to go, prescription for 40 mg prednisone daily for 4 days and explicit instruction to keep her appointment tomorrow with [facility]. All questions were answered prior to discharge. Emergency signs and symptoms, reasons to return to the emergency department discussed with patient. - Vital Signs Vital signs: Temp Pulse Resp BP Pulse Ox 98.2 F 107 H 18 133/92 H 98 06/06/20 04:10 06/06/20 04:10 06/06/20 04:10 06/06/20 04:10 06/06/20 04:10 - Laboratory Results Critical Laboratory Results Reviewed: No Critical Results Attending or Supervising Physician who Reviewed Labs: BOB CLAUDIO IV - Radiology Results Critical Radiology Results Reviewed: No Critical Results Attending or Supervising Physician who Reviewed Radiology: BOB CLAUDIO IV - Transfer of Care Care transferred to following provider: Dr. Lamas @ 0600 Discharge - Discharge Clinical Impression: Acute bronchospasm Condition: Stable Disposition: HOME, SELF-CARE Additional Instructions: Return to the Emergency Department without delay if any worse. Be certain to follow-up with [facility] tomorrow as planned. Call 911 immediately if your breathing gets worse despite using your inhaler and taking your medications as prescribed. HOME CARE INSTRUCTIONS & INFORMATION: Thank you for choosing us for your medical needs. We hope you're satisfied with the care you received. After you leave, you must properly care for your problem and, at the same time, observe its progress. Any condition can change. Some illnesses can change rapidly over hours or days. If your condition worsens, return to the Emergency Department or see your physician promptly. ABOUT YOUR X-RAYS AND EKG'S: If you had an EKG or X-rays taken, they have been read by the Emergency Physician. The X-rays and EKG's will also be read by a Radiologist or Administrator Social Welfare within 24 hours. If discrepancies are noted, you will be notified by telephone. Please be certain the ED has a correct telephone number & address where you can be reached. Also, realize that some fractures or abnormalities do not show up on initial X-rays. If your symptoms continue, see your physician. ABOUT YOUR LABORATORY TEST: If you had laboratory tests, the results have been reviewed by the Emergency Physician. Some test results (for example cultures) may not be available for several days. You will be contacted if any test result shows you need additional treatment. Please be certain the ED has a correct telephone number and address where you can be reached. ABOUT YOUR MEDICATIONS: You will receive instructions on how to take your medicine on the prescription label you receive. Additional information may be provided by the Pharmacy. If you have questions afterwards, call the ED for clarification or further instructions. Some prescribed medications may cause drowsiness. Do not perform tasks such as driving a car or operating machinery without consulting your Pharmacist. If you feel you need a refill of pain medication, your condition will need re-evaluation. Please do not call for a refill of any medication. ABOUT YOUR SIGNATURE: Signature of this document acknowledges to followin. Understanding that you received emergency treatment and that you may be released before al medical problems are known or treated. Please be certain the ED has a correct phone number & address where you can be reached. 2. Acknowledgement that you will arrange for follow-up care as recommended. 3. Authorization for the Emergency Physician to provide information to your follow-up Physician in order to maximize your care. AT ANY TIME, IF YOUR SYMPTOMS CHANGE SIGNIFICANTLY OR WORSEN OR YOU DEVELOP NEW SYMPTOMS, RETURN TO THE EMERGENCY DEPARTMENT IMMEDIATELY FOR RE-EVALUATION. OUR GOAL IS TO PROVIDE EXCELLENT MEDICAL CARE! WE HOPE THAT WE HAVE MET YOUR EXPECTATIONS DURING YOUR EMERGENCY DEPARTMENT VISIT AND THAT YOU FEEL YOU HAVE RECEIVED EXCELLENT CARE! Bronchospasm You have tightness in the bronchial tubes, called bronchospasm. This often occurs with bronchial infections. Allergies, inhaled chemicals, and polluted or cold air can also provoke bronchospasm. It's more likely in patients with asthma in the family. Emergency treatment of bronchospasm may include adrenaline shots or bronchodilator aerosol. You may feel lightheaded and have a rapid pulse for an hour or two. Rest and get plenty of fluids. At home, we'll treat you with a bronchodilator inhaler. Antibiotics and corticosteroids may be required for some patients. Until you recover, avoid chemical fumes, dusts, pollens, and exercising in very cold or dry air. If you smoke, stop now!! If you develop a fever, increased wheezing, chest pain, or severe shortness of breath, you should contact the doctor immediately. Prescriptions: Benzonatate [Tessalon Perles 100 mg Capsule] 200 mg PO Q8HP PRN #30 capsule PRN Reason: Cough Prednisone [Deltasone 20 mg Tablet] 2 tab PO DAILY 4 Days #8 tablet
[2020-06-06] MEDS ORDERED: LEVALBUTEROL HCL NEB 1.25 MG/3 ML AMPUL NEB ONE (05:39)
[2020-06-06] MEDS ORDERED: METHYLPREDNISOLONE INJ 40 MG/1 ML SDV IV ONE (05:40)
[2020-06-06] MEDS ORDERED: NORMAL SALINE 500 ML IV ONE (05:40)
[2020-06-06] MEDS ORDERED: BENZONATATE 100 MG CAPSULE PO ONE (05:45)
[2020-06-06] MEDS ORDERED: ALBUTEROL SULFATE HFA (90 MCG/PUFF) 8 GM MDI (1 MDI/ER DISP) IH PRN (05:55)
[2020-06-06] MEDS ORDERED: ALBUTEROL SULFATE 0.083% NEB 2.5 MG/3 ML AMPUL NEB ONE (06:31)
[2020-06-06 08:06] VITALS: BP 126/84
== END 2020-06-06 08:05 | disposition home or self-care (01) ==
LOC: ER 04:02
DX: J98.01 Acute bronchospasm (principal); R06.02 Shortness of breath; R06.2 Wheezing; Z88.2 Allergy status to sulfonamides
CPT/HCPCS: 94640 ×2; 99285; 96361; 96374; J2920; J7040; J7613; J7614; J3490